=== PATIENT | male | born 1980 | race Two or more races ===

== ENCOUNTER 2024-04-16 21:11 | Emergency (ER) | payer OTHER ==
[~2024-04-16] VITALS: Ht 180.3 cm; Wt 109.0 kg
[2024-04-16 21:47] VITALS: BP 140/86; PULSE 91; RESP 16; O2SAT 97
[2024-04-17] MEDS ORDERED: ACET500T58 PO (01:31)
== END 2024-04-17 02:18 | disposition home or self-care (01) ==
LOC: ER 21:11
DX: R51.9 Headache, unspecified (principal)
CPT/HCPCS: 70450